=== PATIENT | female | born 1985 | race American Indian/Alaskan Native ===

== ENCOUNTER 2018-06-17 18:38 | Emergency (ER) | payer SELFPAY ==
--- NOTE | 2018-06-17 20:08 | Emergency Department Report ---
HPI - General Chief Complaint: Abdominal Pain Time Seen by Provider: 06/17/18 19:48 - HPI HPI: 33-year-old female presents to the emergency department via EMS with a complaint of nausea, vomiting and upper abdominal pain that started earlier today while she was at the movies. She says that she got a drink from the theater and then suddenly the symptoms began. She went into the bathroom where she had 2 episodes of vomiting. She did not take anything for her symptoms or receive anything prior to arrival. She denies any past medical or surgical history. No recent travel or sick contacts at home. ED Past Medical Hx - Past Medical History Previous Medical History?: No - Surgical History Past Surgical History?: No - Social History Smoking Status: Current Every Day Smoker Substance Use Type: None - Medications Home Medications: Home Medications Medication Instructions Recorded Confirmed Last Taken Type Ondansetron [Zofran Odt] 4 mg PO Q8H PRN #10 tab.rapdis 06/17/18 Unknown Rx ED Review of Systems ROS: Stated complaint: N/V Other details as noted in HPI Comment: All other systems reviewed and negative Constitutional: denies: chills, fever Eyes: denies: eye pain, eye discharge, vision change ENT: denies: ear pain, throat pain Respiratory: denies: cough, shortness of breath, wheezing Cardiovascular: denies: chest pain, palpitations Gastrointestinal: abdominal pain, nausea, vomiting Genitourinary: denies: urgency, dysuria, discharge Musculoskeletal: denies: back pain, joint swelling, arthralgia Skin: denies: rash, lesions Neurological: denies: headache, weakness, paresthesias Physical Exam - Physical Exam Vital Signs: Vital Signs 06/17/18 06/17/18 06/17/18 19:33 19:42 19:45 Temperature 98.5 F Pulse Rate 86 88 Respiratory 12 13 Rate Blood Pressure 183/134 Blood Pressure 181/142 [Left] O2 Sat by Pulse 100 100 Oximetry 06/17/18 19:47 Temperature Pulse Rate Respiratory 12 Rate Blood Pressure Blood Pressure [Left] O2 Sat by Pulse Oximetry Physical Exam: GENERAL: The patient is well-developed well-nourished. HENT: Normocephalic. Atraumatic. Patient has moist mucous membranes. EYES: Extraocular motions are intact. Pupils equal reactive to light bilaterally. NECK: Supple. Trachea is midline. CHEST/LUNGS: Clear to auscultation. There is no respiratory distress noted. HEART/CARDIOVASCULAR: Regular. There is no tachycardia. There is no murmur. ABDOMEN: Abdomen is soft. Upper abdominal tenderness to palpation. No guarding. No rebound tenderness. Patient has normal bowel sounds. There is no abdominal distention. SKIN: Skin is warm and dry. NEURO: The patient is awake, alert, and oriented. The patient is cooperative. The patient has no focal neurologic deficits. The patient has normal speech. MUSCULOSKELETAL: There is no tenderness or deformity. There is no limitation range of motion. There is no evidence of acute injury. ED Course Vital Signs 06/17/18 06/17/18 06/17/18 19:33 19:42 19:45 Temperature 98.5 F Pulse Rate 86 88 Respiratory 12 13 Rate Blood Pressure 183/134 Blood Pressure 181/142 [Left] O2 Sat by Pulse 100 100 Oximetry 06/17/18 19:47 Temperature Pulse Rate Respiratory 12 Rate Blood Pressure Blood Pressure [Left] O2 Sat by Pulse Oximetry ED Medical Decision Making - Lab Data Result diagrams: 06/17/18 20:22 06/17/18 20:22 - Radiology Data Radiology results: report reviewed, image reviewed interpreted by me: Abdominal x-ray shows some right-sided air fluid levels. Otherwise there is no significant signs of dilatated or obstruction. EXAM: US ABDOMEN LIMITED HISTORY: upper abd pain TECHNIQUE: Grayscale and color-flow imaging of the right upper quadrant was performed. FINDINGS: Liver: Demonstrates homogeneous echogenicity. There is no demonstration of a focal mass. Gallbladder: Moderately distended and without evidence of gallstones, gallbladder wall thickening or pericholecystic fluid. Common bile duct: Normal caliber (2 millimeters). Right kidney: Measures 9.2 centimeters in the maximal craniocaudal dimension. There is no demonstration of hydronephrosis, renal calculi or renal mass. Pancreas: Not well visualized due to artifact. IMPRESSION: 1. Pancreas not well visualized due to artifact. 2. Otherwise unremarkable ultrasound of the right upper quadrant. Transcribed By: ED Dictated By: HANNAH BELL MD Electronically Authenticated By: HANNAH BELL MD Signed Date/Time: 06/17/182223 - Medical Decision Making Patient presented with some acute upper abdominal pain, nausea and vomiting from earlier this afternoon. On examination she has some mild reproducible upper abdominal tenderness to palpation but the abdomen is not rigid or toxic in appearance. Labs were unremarkable including no signs of any systemic or urinary tract infection, electrolyte abnormalities. The patient has normal belly labs and she is not . Abdominal x-ray shows a few nonspecific air -fluid levels but otherwise no significant dilation or obstruction. Ultrasound did not have great visualization of the pancreas but does not show any signs of cholelithiasis, cholecystitis or hepatic injury or infection. The patient was given a dose of pain medication and her abdominal pain resolved. She did present with some elevated blood pressure. The patient admits to heavy caffeine use, salt use and she has a tobacco smoker. We discussed the dietary and lifestyle changes that can be made to assist with her elevated blood pressure readings. She is going to buy a blood pressure cuff and keep a blood pressure log. She has been given referrals for local primary care clinics to establish care and follow-up. She will return to the ER with any worsening of her symptoms or any acute distress. - Differential Diagnosis pancreatitis, cholelithiasis, cholecystitis, food poisoning Critical Care Time: No Critical care attestation.: If time is entered above; I have spent that time in minutes in the direct care of this critically ill patient, excluding procedure time. ED Disposition Clinical Impression: Abdominal pain Qualifiers: Abdominal location: unspecified location Qualified Code(s): R10.9 - Unspecified abdominal pain Nausea & vomiting Qualifiers: Vomiting type: unspecified Vomiting Intractability: non-intractable Qualified Code(s): R11.2 - Nausea with vomiting, unspecified Hypertension Qualifiers: Hypertension type: essential hypertension Qualified Code(s): I10 - Essential ( primary) hypertension Disposition: DC-01 TO HOME OR SELFCARE Is pt being admited?: No Condition: Stable Instructions: How to Stop Smoking (ED), Acute Nausea and Vomiting (ED), Abdominal Pain (ED), DASH Eating Plan (ED), Hypertension (ED) Additional Instructions: Please follow up with a primary care physician or clinic in the next few days. Try and stay away from foods that are high in salt and caffeinated products to help with your elevated blood pressure. Keep a blood pressure log. Try and quit smoking. Return to the emergency Department with any worsening of your symptoms or any acute distress. Prescriptions: Ondansetron [Zofran Odt] 4 mg PO Q8H PRN #10 tab.rapdis PRN Reason: Nausea Referrals: PRIMARY CARE,MD [Primary Care Provider] - 3-5 Days [facility] [Outside] - 3-5 Days [facility] [Outside] - 3-5 Days [facility] [Outside] - 3-5 Days [facility] [Outside] - 3-5 Days Forms: Work/School Release Form(ED) Time of Disposition: 23:55
[2018-06-17 20:49] LABS: Basophils % (Auto) 0.5 % (0.0-1.8); Eosinophils % (Auto) 0.2 % (0.0-4.3); Hematocrit 40.1 % (30.3-42.9); Hemoglobin 13.2 gm/dl (10.1-14.3); Lymphocytes # (Auto) 1.4 K/mm3 (1.2-5.4); Mean Corpuscular HGB Conc 33 % (30-34); Mean Corpuscular Hemoglobin 26 pg (28-32); Mean Corpuscular Volume 80 fl (79-97); Monocytes # (Auto) 0.2 K/mm3 (0.0-0.8); Monocytes % (Auto) 2.9 % (0.0-7.3); Red Blood Count 5.04 M/mm3 (3.65-5.03); Red Cell Distribution Width 14.7 % (13.2-15.2)
[2018-06-17 20:53] LABS: Platelet Count 346 K/mm3 (140-440)
[2018-06-17 21:07] LABS: BUN/Creatinine Ratio 15; Blood Urea Nitrogen 9 mg/dL (7-17); Calcium 9.3 mg/dL (8.4-10.2); Hemolysis Index 177; Lipase 48 units/L (13-60)
[2018-06-17] MEDS ORDERED: ZOFRAN IV ONE (21:21)
[2018-06-17] MEDS ORDERED: MORPHINE IV ONE (21:21)
[2018-06-17 21:34] LABS: Bilirubin,Urine NEG (Negative); Blood,Urine NEG (Negative); Color,Urine Yellow (Yellow); Mucus,Urine FEW /HPF; Protein,Urine <15 mg/dL mg/dL (Negative); Urobilinogen,Urine < 2.0 mg/dL (<2.0)
[2018-06-17 21:36] LABS: Alanine Aminotransferase 14 units/L (7-56); Bilirubin,Direct < 0.2 mg/dL (0-0.2)
--- NOTE | 2018-06-17 22:26 | Ultrasound Report ---
FINAL REPORT EXAM: US ABDOMEN LIMITED HISTORY: upper abd pain TECHNIQUE: Grayscale and color-flow imaging of the right upper quadrant was performed. FINDINGS: Liver: Demonstrates homogeneous echogenicity. There is no demonstration of a focal mass. Gallbladder: Moderately distended and without evidence of gallstones, gallbladder wall thickening or pericholecystic fluid. Common bile duct: Normal caliber (2 millimeters). Right kidney: Measures 9.2 centimeters in the maximal craniocaudal dimension. There is no demonstration of hydronephrosis, renal calculi or renal mass. Pancreas: Not well visualized due to artifact. IMPRESSION: 1. Pancreas not well visualized due to artifact. 2. Otherwise unremarkable ultrasound of the right upper quadrant.
[2018-06-17] MEDS ORDERED: NORMODYNE IV ONE (22:44)
[2018-06-17 23:05] LABS: Amphetamine Screen,Urine PRESUMPTIVE NEGATIVE; Benzodiazepines Screen,Urine PRESUMPTIVE NEGATIVE; Cannabinoid Screen,Urine PRESUMPTIVE NEGATIVE; Cocaine Screen,Urine PRESUMPTIVE NEGATIVE; Methadone Screen,Urine PRESUMPTIVE NEGATIVE; Opiate Screen,Urine PRESUMPTIVE NEGATIVE
[2018-06-17] MEDS ORDERED: APRESOLINE IV ONE (23:21)
--- NOTE | 2018-06-17 23:21 | XRay Report ---
FINAL REPORT EXAM: XR ABDOMEN 2V HISTORY: abd pain TECHNIQUE: Frontal views of the abdomen and pelvis in the supine and upright positions Comparison: Ultrasound abdomen also performed today FINDINGS: There are mildly distended air-filled loops of small bowel in the abdomen and pelvis with air-fluid levels on the upright view. There is no definite evidence of pneumoperitoneum nor organomegaly. The bony structures are unremarkable. IMPRESSION: 1. Nonspecific bowel gas pattern with mildly distended loops of small bowel with air-fluid levels on the upright view. CT abdomen and pelvis may be helpful for further evaluation.
[2018-06-18 00:10] VITALS: BP 166/115
== END 2018-06-18 00:28 | disposition home or self-care (01) ==
LOC: ED 18:38
DX: R10.10 Upper abdominal pain, unspecified (principal); R11.2 Nausea with vomiting, unspecified; I10 Essential (primary) hypertension; F17.200 Nicotine dependence, unspecified, uncomplicated; Z79.899 Other long term (current) drug therapy
CPT/HCPCS: 36415; 74019; 76705; 80048; 80074; 80307; 81001; 83690; 84703; 85025; 96374; 96375; 99284; J2270; J2405